=== PATIENT | male | born 1985 | race African-American/Black ===

== ENCOUNTER 2021-04-08 14:42 | Outpatient (CLI) | payer OTHER | END 2021-04-08 14:43 | disposition home or self-care (01) | LOC: CSHMRI 14:42 | PROVIDERS: ATTEND Psychiatry & Neurology Neurology | DX: R56.1 Post traumatic seizures (principal); S06.2X9D Diffuse traumatic brain injury with loss of consciousness of unspecified duration, subsequent encounter | CPT/HCPCS: 70551 ==

== ENCOUNTER 2022-01-20 11:23 | Emergency (ER) | payer BC, OTHER, SELFPAY | END 2022-01-20 12:05 | disposition home or self-care (01) | LOC: CSHERS 11:23 | DX: B34.9 Viral infection, unspecified (principal); Z20.822 Contact with and (suspected) exposure to COVID-19 | CPT/HCPCS: 99283; U0003; U0005 ==

== ENCOUNTER 2024-04-04 20:12 | Emergency (ER) | payer OTHER ==
[2024-04-04] MEDS ORDERED: Methocarbamol 500 MG TAB ONE (21:30)
== END 2024-04-04 21:38 | disposition home or self-care (01) ==
LOC: CSHERS 20:12
DX: S16.1XXA Strain of muscle, fascia and tendon at neck level, initial encounter (principal); V89.2XXA Person injured in unspecified motor-vehicle accident, traffic, initial encounter
CPT/HCPCS: 70450; 72125

== ENCOUNTER 2024-07-10 13:09 | Emergency (ER) | payer OTHER, MEDICARE, MEDICAID ==
[2024-07-10] MEDS ORDERED: Ketorolac Tromethamine 30 MG (1 mL) VIAL ONE (14:20)
== END 2024-07-10 15:15 | disposition home or self-care (01) ==
LOC: CSHERS 13:09
DX: M54.50 Low back pain, unspecified (principal); V89.2XXA Person injured in unspecified motor-vehicle accident, traffic, initial encounter
CPT/HCPCS: 72040; 72100; 96372; 99283; J1885